=== PATIENT | female | born 1965 | race Caucasian/White ===

== ENCOUNTER 2017-09-30 19:35 | Emergency (ER) | payer OTHER ==
[~2017-09-30] VITALS: Ht 160 cm; Wt 72.6 kg
[~2017-09-30 19:35] MED LIST: ATIVAN0.5 MG PAD; CIPRO500 MG PO; NOHOMEMEDICATIONS
[2017-09-30 19:43] VITALS: BP 168/99
[2017-09-30] MEDS ORDERED: HYDROCODONE-AP1 EAC6 PO (20:13)
[2017-09-30] MEDS ORDERED: LIDOCAINE VISC100 ML SWISH&SPIT (20:13)
[2017-09-30] MEDS ORDERED: CLEOCIN HCL150 MG PO (20:13)
== END 2017-09-30 20:25 | disposition home or self-care (01) ==
LOC: M.ERS 19:35
DX: K04.7 Periapical abscess without sinus (principal); Z90.49 Acquired absence of other specified parts of digestive tract

== ENCOUNTER 2018-08-27 18:28 | Emergency (ER) | payer OTHER ==
[~2018-08-27] VITALS: Ht 160 cm; Wt 72.6 kg
[~2018-08-27 18:28] MED LIST changes: +CLEOCIN HCL150 MG PO; +HYDROCODONE-AP1 EAC6 PO; +LIDOCAINE VISC100 ML SWISH&SPIT
[2018-08-27 19:25] LABS: HEMOGLOBIN 14.2 gm/dL (12.0-15.0); MCH 30.5 pg (26.0-34.0); MCHC 33.9 g/dL (28.0-37.0); MCV 90.1 fL (80.0-100.0); MPV 7.6 fl. (7.2-11.1); NUCLEATED RBCS 0 /100WBC; PLATELET COUNT* 202 thou/uL (150-400); RBC 4.66 mil/uL (4.20-5.00); RDW-CV 13.1 % (10.5-14.5)
[2018-08-27 19:38] LABS: ALBUMIN 3.2 g/dL (3.4-5.0); CALCIUM 8.3 mg/dL (8.5-10.1); CREATININE 0.8 mg/dL (0.6-1.3); POTASSIUM 3.8 mmol/L (3.5-5.1); TOTAL BILIRUBIN 0.5 mg/dL (<0.1-1.0); TOTAL PROTEIN 6.4 g/dL (6.4-8.2)
[2018-08-27 19:57] LABS: ABSOLUTE EOSINOPHILS 0.2 thou/uL (0.0-0.7); ABSOLUTE LYMPHOCYTES 0.5 thou/uL (0.8-5.3); ABSOLUTE MONOCYTES 0.1 thou/uL (0.0-1.2); ABSOLUTE NEUTROPHILS 7.3 thou/uL (1.6-8.1); PLATELET ESTIMATE ADEQUATE
[2018-08-27] MEDS ORDERED: ZOFRAN ODT4 MG DISSOLVE (20:44)
[2018-08-27 20:59] VITALS: BP 112/80
== END 2018-08-27 21:01 | disposition home or self-care (01) ==
LOC: M.ERS 18:28
PROVIDERS: Nurse Practitioner Family
DX: K52.9 Noninfective gastroenteritis and colitis, unspecified (principal); F17.210 Nicotine dependence, cigarettes, uncomplicated; Z90.49 Acquired absence of other specified parts of digestive tract